=== PATIENT | male | born 1975 | race Hispanic/Latino ===

== ENCOUNTER 2017-02-06 01:32 | Emergency (ER) | payer OTHER ==
[2017-02-06 01:32] VITALS: BMI 24.0
[2017-02-06 01:47] VITALS: RESP 16; TEMP 99.6
[2017-02-06] MEDS ORDERED: Lidocaine/Epi 1% 1:100000 20 ML IJ ONE (01:54)
--- NOTE | 2017-02-06 01:57 | ED PDOC ---
HPI: Wound Care - HPI Time Seen by Provider: 02/06/17 01:44 Chief Complaint (Nursing): Trauma Chief Complaint (Provider): fall History Per: Patient History Of Present Illness: 41 y/o male presents with forehead laceration sustained 1 hour prior to arrival. Patient states he tripped and fell down approximately 10 concrete steps. Denies LOC, headache, dizziness, vision change, nausea/vomiting, extremity numbness/weakness, neck/back pain, facial pain. Tetanus not up to date. Past Medical History Reviewed: Historical Data, Nursing Documentation, Vital Signs Vital Signs: Last Vital Signs Temp 99.6 F 02/06/17 01:44 Pulse 120 H 02/06/17 01:44 Resp 16 02/06/17 01:44 BP 125/86 02/06/17 01:44 Pulse Ox 99 02/06/17 01:44 - Medical History PMH: No Chronic Diseases Denies: Colonic Polyps, Fractures - Surgical History Surgical History: Tonsillectomy Denies: Endoscopy - Family History Family History: States: No Known Family Hx - Home Medications Home Medications: Ambulatory Orders Medication Instructions Recorded Sleepinal Max Strength 1 tab PO HS PRN 05/02/16 - Allergies Allergies/Adverse Reactions: Allergies Allergy/AdvReac Type Severity Reaction Status Date / Time No Known Allergies Allergy Verified 02/06/17 01:43 Review of Systems ROS Statement: Except As Marked, All Systems Reviewed And Found Negative Skin: Positive for: Other (head injury) Physical Exam - Reviewed Nursing Documentation Reviewed: Yes Vital Signs Reviewed: Yes - Physical Exam Appears: Positive for: Well, Non-toxic, No Acute Distress Head Exam: Positive for: NORMAL INSPECTION, NORMOCEPHALIC. Negative for: ATRAUMATIC (4cm vertical laceration left frontal scalp. No active bleeding) Skin: Positive for: Normal Color Eye Exam: Positive for: Normal appearance, EOMI, PERRL ENT: Positive for: Normal ENT Inspection Cardiovascular/Chest: Positive for: Regular Rate, Rhythm Respiratory: Positive for: Normal Breath Sounds Extremity: Positive for: Normal ROM Neurologic/Psych: Positive for: Alert, Oriented (x3) - ECG O2 Sat by Pulse Oximetry: 99 - Progress ED Course And Treament: EXAM: CT Head Without Intravenous Contrast CLINICAL HISTORY: 41 years old, male; Injury or trauma; Fall; Initial encounter; Concussion / head injury; Without loss of consciousness; Additional info: Fall, forehead laceration, ETOH TECHNIQUE: Axial computed tomography images of the head/brain without intravenous contrast. All CT scans at this facility use one or more dose reduction techniques, viz.: automated exposure control; ma/kV adjustment per patient size (including targeted exams where dose is matched to indication; i.e. head); or iterative reconstruction technique. Coronal and sagittal reformatted images were created and reviewed. COMPARISON: No relevant prior studies available. FINDINGS: Brain: No intracranial hemorrhage. No mass. No edema. Ventricles: No hydrocephalus. Bones/joints: No acute fracture. Soft tissues: Soft tissue irregularity along LEFT frontal scalp. Sinuses: No acute sinusitis. Mastoid air cells: No mastoid effusion. Orbits: Unremarkable as visualized. IMPRESSION: 1. No intracranial hemorrhage Procedure: Wound Repair - Time Performed Time Performed: 03:40 - Time Out Time Out: Side verified, Site verified, Patient ID confirmed, Sterile procedures obs. - Procedure Procedure: Wound Repair: forehead laceration - Consent Obtained Consent obtained: Verbal - Performed by Performed by: Mid-level Provider - Indications Indication(s):: Laceration - Location Location:: Left, Face Shape:: Curvilinear Dimensions Length cm: 4cm Dimensions width cm: 1cm Depth:: Subcutaneous fascia - Anesthetic Technique Local/Regional Anesthetic:: Lidocaine 2% w/epi - Debris Debris:: None - Irrigated Irrigated with ml of normal saline: 250mL - Complexity Complexity:: Simple (one layer) - Wound repair method Sutures:: # (9), Size (5'0), Type (nylon), Technique (interrupted) - Muscle repiar layer closed with Muscle repair layer closed with:: Abx ointment applied, Dressing applied, Tetanus ordered - Patient tolerated procedure Patient Tolerated Procedure:: Well Medical Decision Making Medical Decision Making: Patient educated on wound care, advised suture removal 5 days. Ice affected area. Return precautions given. Disposition - Clinical Impression Clinical Impression: Head injury, Forehead laceration - Patient ED Disposition Is Patient to be Admitted: No Counseled Patient/Family Regarding: Studies Performed, Diagnosis, Need For Followup - Disposition Disposition: Routine/Home Disposition Time: 03:56 Condition: STABLE Additional Instructions: Suture removal in 5 days. Ice affected area. Return to ED for worsening headache, vomiting, fever, increased pain/redness/ swelling at site, discharge from site, or other concerning symptoms. Instructions: Care For Your Stitches (ED), Laceration (ED), Head Injury (ED) Forms: [employer] (Belarusian), [facility] ED School/Work Excuse
[2017-02-06] MEDS ORDERED: Lidocaine 2% w Epi 1:100,000 Inj IJ ONE ×2 (02:14→03:25)
--- NOTE | 2017-02-06 03:22 | CT ---
EXAM: CT Head Without Intravenous Contrast CLINICAL HISTORY: 41 years old, male; Injury or trauma; Fall; Initial encounter; Concussion / head injury; Without loss of consciousness; Additional info: Fall, forehead laceration, ETOH TECHNIQUE: Axial computed tomography images of the head/brain without intravenous contrast. All CT scans at this facility use one or more dose reduction techniques, viz.: automated exposure control; ma/kV adjustment per patient size (including targeted exams where dose is matched to indication; i.e. head); or iterative reconstruction technique. Coronal and sagittal reformatted images were created and reviewed. COMPARISON: No relevant prior studies available. FINDINGS: Brain: No intracranial hemorrhage. No mass. No edema. Ventricles: No hydrocephalus. Bones/joints: No acute fracture. Soft tissues: Soft tissue irregularity along LEFT frontal scalp. Sinuses: No acute sinusitis. Mastoid air cells: No mastoid effusion. Orbits: Unremarkable as visualized. IMPRESSION: 1. No intracranial hemorrhage.
[2017-02-06 04:22] VITALS: BP 120/80; PULSE 96; O2SAT 97
== END 2017-02-06 04:05 | disposition home or self-care (01) ==
LOC: H.ER 01:32
DX: S09.90XA Unspecified injury of head, initial encounter (principal); S01.81XA Laceration without foreign body of other part of head, initial encounter; W10.9XXA Fall (on) (from) unspecified stairs and steps, initial encounter

== ENCOUNTER 2017-02-10 11:59 | Emergency (ER) | payer OTHER ==
[2017-02-10 12:14] VITALS: BMI 23.7
[2017-02-10 12:15] VITALS: BP 133/89; PULSE 106; RESP 17; TEMP 99.2; O2SAT 98
--- NOTE | 2017-02-10 12:34 | ED PDOC ---
HPI: Wound Care - HPI Time Seen by Provider: 02/10/17 12:23 Chief Complaint (Nursing): Suture/Staple Removal Chief Complaint (Provider): Wound check/staple removal History Per: Patient Exam Limitations: no limitations Onset/Duration Of Symptoms: Days (x4) Current Symptoms Are (Timing): Still Present Location Of Injury: Anterior: Head Additional Complaint(s): Hope is a 41 y/o male presenting to the ED for wound check/suture removal on forehead. On 02/06 sutures were placed. Patient offers no complaints at present. PMD: Unknown Past Medical History Reviewed: Historical Data, Nursing Documentation, Vital Signs Vital Signs: Last Vital Signs Temp 99.2 F 02/10/17 12:14 Pulse 106 H 02/10/17 12:14 Resp 17 02/10/17 12:14 BP 133/89 02/10/17 12:14 Pulse Ox 98 02/10/17 12:14 - Medical History PMH: Denies: Colonic Polyps, Fractures - Surgical History Surgical History: Tonsillectomy Denies: Endoscopy - Family History Family History: States: No Known Family Hx - Home Medications Home Medications: Ambulatory Orders Medication Instructions Recorded Sleepinal Max Strength 1 tab PO HS PRN 05/02/16 - Allergies Allergies/Adverse Reactions: Allergies Allergy/AdvReac Type Severity Reaction Status Date / Time No Known Allergies Allergy Verified 02/06/17 01:43 Review of Systems ROS Statement: Except As Marked, All Systems Reviewed And Found Negative Constitutional: Negative for: Fever, Chills Skin: Positive for: Lesions (laceration on forehead) Physical Exam - Reviewed Nursing Documentation Reviewed: Yes Vital Signs Reviewed: Yes - Physical Exam Appears: Positive for: Well, Non-toxic, No Acute Distress Head Exam: Positive for: ATRAUMATIC, NORMOCEPHALIC Skin: Positive for: Normal Color (Noted healing wound with sutures in place. Minimal dehiscence on the inferior portion of wound.), Warm, Dry Eye Exam: Positive for: EOMI, Normal appearance, PERRL Neck: Positive for: Normal, Supple Neurologic/Psych: Positive for: Alert, Oriented, Gait (steady) - ECG O2 Sat by Pulse Oximetry: 98 (RA) Pulse Ox Interpretation: Normal Medical Decision Making Medical Decision Making: Time: 12:30 Plan: --Counseled patient on wound care instructions --Patient instructed to return in 2 days for wound check/suture removal Scribe Attestation: Documented by Diane Salazar, acting as a scribe for Nick Otero PA-C Provider Scribe Attestation: All medical record entries made by the Scribe were at my direction and personally dictated by me. I have reviewed the chart and agree that the record accurately reflects my personal performance of the history, physical exam, medical decision making, and the department course for this patient. I have also personally directed, reviewed, and agree with the discharge instructions and disposition. Disposition - Clinical Impression Clinical Impression: Visit for wound check - Patient ED Disposition Is Patient to be Admitted: No - Disposition Disposition: Routine/Home Disposition Time: 12:32 Condition: STABLE Instructions: Care For Your Stitches (ED) Forms: [employer] (German)
== END 2017-02-10 13:49 | disposition home or self-care (01) ==
LOC: H.ER 11:59
DX: Z48.02 Encounter for removal of sutures (principal)

== ENCOUNTER 2017-02-13 08:18 | Emergency (ER) | payer OTHER ==
[2017-02-13 08:19] VITALS: BMI 23.7
[2017-02-13 08:29] VITALS: BP 138/81; PULSE 118; RESP 18; TEMP 97; O2SAT 98
--- NOTE | 2017-02-13 09:30 | ED PDOC ---
HPI: Wound Care - HPI Time Seen by Provider: 02/13/17 08:54 Chief Complaint (Nursing): Suture/Staple Removal Chief Complaint (Provider): Suture removal History Per: Patient Exam Limitations: no limitations Additional Complaint(s): Patient is a 41 y/o male with no significant past medical history presenting to the emergency department for head sutures removal. Reports that he fell down the stairs after losing his balance 7-8 days ago and received sutures for his head wound. Notes that he was evaluated on Saturday02/10/17 but sutures were not ready to be removed. Also notes decrease in redness. Denies antibiotics treatment, pain, itchiness, discharge, numbness, tingling, fever, or other complaints. Tetanus shot is up to date. PCP: none provided Past Medical History Reviewed: Historical Data, Nursing Documentation, Vital Signs Vital Signs: Last Vital Signs Temp 97 F L 02/13/17 08:24 Pulse 118 H 02/13/17 08:24 Resp 18 02/13/17 08:24 BP 138/81 02/13/17 08:24 Pulse Ox 98 02/13/17 08:24 - Medical History PMH: No Chronic Diseases Denies: Colonic Polyps, Fractures - Surgical History Surgical History: Tonsillectomy Denies: Endoscopy - Family History Family History: States: Unknown Family Hx - Social History Current smoker - smoking cessation education provided: Yes (less than 10 cigarettes per day) Ex-Smoker (has not smoked in the last 12 months): No Alcohol: Social Drugs: Denies - Home Medications Home Medications: Ambulatory Orders Medication Instructions Recorded Sleepinal Max Strength 1 tab PO HS PRN 05/02/16 - Allergies Allergies/Adverse Reactions: Allergies Allergy/AdvReac Type Severity Reaction Status Date / Time No Known Allergies Allergy Verified 02/13/17 08:24 Review of Systems ROS Statement: Except As Marked, All Systems Reviewed And Found Negative Constitutional: Negative for: Fever Skin: Positive for: Other (head sutures without discharge, itchiness, or pain) Neurological: Negative for: Numbness (and tingling) Physical Exam - Reviewed Nursing Documentation Reviewed: Yes Vital Signs Reviewed: Yes - Physical Exam Appears: Positive for: Well, Non-toxic, No Acute Distress Head Exam: Positive for: NORMOCEPHALIC (with 9 stitches of 4 cm vertical incision on left frontal side of head, intact) Skin: Positive for: Normal Color, Warm, Dry Eye Exam: Positive for: Normal appearance Neck: Positive for: Normal Cardiovascular/Chest: Positive for: Regular Rate, Rhythm. Negative for: Murmur Respiratory: Positive for: Normal Breath Sounds. Negative for: Accessory Muscle Use, Respiratory Distress Extremity: Positive for: Normal ROM Neurologic/Psych: Positive for: Oriented (x3) - ECG O2 Sat by Pulse Oximetry: 98 (RA) Pulse Ox Interpretation: Normal Procedure: Wound Repair - Time Performed Time Performed: : - Procedure Procedure: Wound Repair: Sutures removal - Consent Obtained Consent obtained: Verbal - Performed by Performed by: Attending Physician - Indications Indication(s):: Incision wound - Location Location:: Left, Anterior Dimensions Length cm: 4 Medical Decision Making Medical Decision Making: Time: 919 Initial impression: Head sutures removal Initial plan: Left frontal head sutures removal (9 stitches) Scribe Attestation: Documented by Yvette Sims, acting as a scribe for Morteza Terrazas MD. Provider Scribe Attestation: All medical record entries made by the Scribe were at my direction and personally dictated by me. I have reviewed the chart and agree that the record accurately reflects my personal performance of the history, physical exam, medical decision making, and the department course for this patient. I have also personally directed, reviewed, and agree with the discharge instructions and disposition. Disposition - Clinical Impression Clinical Impression: Removal of suture - Disposition Referrals: [facility] [Outside] - 02/14/17 Disposition Time: 08:28 Condition: STABLE Additional Instructions: Return if not better in 3 days. Instructions: Stitches Removal (ED) Forms: [employer] (Czech)
== END 2017-02-13 10:12 | disposition home or self-care (01) ==
LOC: H.ER 08:18
DX: Z48.02 Encounter for removal of sutures (principal)